=== PATIENT | female | born 1995 | race Hispanic/Latino ===

== ENCOUNTER 2017-06-19 12:58 | Emergency (ER) | payer OTHER ==
[2017-06-19 13:06] VITALS: O2SAT 99
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
[2017-06-19] MEDS ORDERED: cefTRIAXone (Rocephin) 250 mg Inj IM ONE (16:12)
[2017-06-19] MEDS ORDERED: cefTRIAXone (Rocephin) 250 mg Inj ONE (16:41)
[2017-06-19 17:53] VITALS: BP 112/69; PULSE 90; RESP 14; TEMP 97.9
== END 2017-06-19 17:10 | disposition home or self-care (01) ==
LOC: H.ER 12:58
DX: Z04.41 Encounter for examination and observation following alleged adult rape (principal)
CPT/HCPCS: 81025; 96372; 99285; J0696